=== PATIENT | female | born 1970 | race Caucasian/White ===

== ENCOUNTER 2016-12-30 10:05 | Emergency (ER) | payer OTHER ==
[~2016-12-30] VITALS: Ht 167.6 cm; Wt 75.0 kg
[~2016-12-30 10:05] MED LIST: ALBU8I INH; ATEN-100 PO; BENZ100 PO; CIPR500T4 PO; PRED20 PO
[2016-12-30 10:22] VITALS: BP 139/85; PULSE 80; RESP 20; TEMP 98.5; O2SAT 100
[2016-12-30] MEDS ORDERED: ATEN25TA PO (10:25)
--- NOTE | 2016-12-30 11:09 | PD ---
HPI Chief Complaint: Dizziness Time Seen by Provider: 10:50 Travel History International Travel<30 days: No Contact w/Intl Traveler<30days: No Traveled to known affect area: No History of Present Illness HPI Patient is a 46-year-old female presenting to the emergency department medical complaints. Patient states that she has been fatigued for weeks, she reports weakness in her arms and legs, she states that she has been dizzy with mood swings, inability to concentrate, her thoughts are racing she thinks that she has a cortisol problem due to being on several Medrol dose packs for bronchitis last year. She was treated for hypothyroidism and placed on Synthroid per her director ambulatory, she states this exacerbated her symptoms and she's been off of it for one week and doesn't feel any better. Only other medical histories of mitral valve prolapse, she is followed by Dr. Quintanilla her project specialist. She recently had a negative cardiac workup ordered. She denies any chest pain, abdominal pain, shortness of breath, nausea, vomiting. She does report that she feels anxious but that's related to her illness, she denies any recent or new stressors. PFSH Past Medical History Anxiety: Yes Cardiovascular Problems: Yes (MITRAL VALVE PROLAPSE) Tetanus Vaccination: > 5 Years ?: Not : 4 Para: 2 Past Surgical History Section: Yes Tonsillectomy: Yes Social History Alcohol Use: No Tobacco Use: No Substance Use: No Allergies-Medications (Allergen,Severity, Reaction): Coded Allergies: No Known Allergies (Verified , 12/30/16) Reported Meds & Prescriptions Reported Meds & Active Scripts Active Reported Atenolol 25 Mg Tab 12.5 Mg PO DAILY Review of Systems Except as stated in HPI: all other systems reviewed are Neg General / Constitutional: Positive: Other (fatigue) Eyes: No: Visual changes HENT: No: Headaches Cardiovascular: No: Chest Pain or Discomfort Respiratory: No: Shortness of Breath Gastrointestinal: No: Nausea, Abdominal Pain Genitourinary: No: Dysuria Musculoskeletal: Positive: Weakness Neurologic: Positive: Dizziness, Other (memory loss), No: Syncope, Focal Abnormalities Psychiatric: Positive: Anxiety Physical Exam Narrative GENERAL: Overweight, well-developed, alert female. Appears anxious, in no acute distress. SKIN: Focused skin assessment warm/dry. HEAD: Atraumatic. Normocephalic. EYES: Pupils equal and round. No scleral icterus. No injection or drainage. ENT: No nasal bleeding or discharge. Mucous membranes pink and moist. NECK: Trachea midline. No JVD. CARDIOVASCULAR: Regular rate and rhythm. No murmur appreciated. RESPIRATORY: No accessory muscle use. Clear to auscultation. Breath sounds equal bilaterally. GASTROINTESTINAL: Abdomen soft, non-tender, nondistended. Hepatic and splenic margins not palpable. MUSCULOSKELETAL: No obvious deformities. No clubbing. No cyanosis. No edema. NEUROLOGICAL: Awake and alert. No obvious cranial nerve deficits. Motor grossly within normal limits. Normal speech. PSYCHIATRIC: Appropriate mood and affect; insight and judgment normal. Data Data Last Documented VS Vital Signs Date Time Temp Pulse Resp B/P Pulse Ox O2 Delivery O2 Flow Rate FiO2 12/30/16 11:14 99 Room Air 12/30/16 10:22 98.5 80 20 139/85 Orders Complete Blood Count With Diff (12/30/16 11:01) Comprehensive Metabolic Panel (12/30/16 11:01) Urinalysis - C+S If Indicated (12/30/16 11:01) Ct Brain W/O Iv Contrast(Rout) (12/30/16 11:01) Ecg Monitoring (12/30/16 11:01) Iv Access Insert/Monitor (12/30/16 11:01) Oximetry (12/30/16 11:01) Sodium Chloride 0.9% Flush (Ns Flush) (12/30/16 11:15) Thyroid Stimulating Hormone (12/30/16 11:01) Free Thyroxine (T4) (12/30/16 11:01) Labs Laboratory Tests Test 12/30/16 11:09 White Blood Count 6.6 TH/MM3 Red Blood Count 4.47 MIL/MM3 Hemoglobin 13.5 GM/DL Hematocrit 39.1 % Mean Corpuscular Volume 87.7 FL Mean Corpuscular Hemoglobin 30.3 PG Mean Corpuscular Hemoglobin 34.5 % Concent Red Cell Distribution Width 13.6 % Platelet Count 238 TH/MM3 Mean Platelet Volume 8.3 FL Neutrophils (%) (Auto) 61.2 % Lymphocytes (%) (Auto) 29.4 % Monocytes (%) (Auto) 6.4 % Eosinophils (%) (Auto) 2.2 % Basophils (%) (Auto) 0.8 % Neutrophils # (Auto) 4.1 TH/MM3 Lymphocytes # (Auto) 2.0 TH/MM3 Monocytes # (Auto) 0.4 TH/MM3 Eosinophils # (Auto) 0.1 TH/MM3 Basophils # (Auto) 0.1 TH/MM3 CBC Comment DIFF FINAL Differential Comment Urine Color LIGHT-YELLOW Urine Turbidity CLEAR Urine pH 7.0 Urine Specific Finley 1.004 Urine Protein NEG mg/dL Urine Glucose (UA) NEG mg/dL Urine Ketones NEG mg/dL Urine Occult Blood NEG Urine Nitrite NEG Urine Bilirubin NEG Urine Urobilinogen LESS THAN 2.0 MG/DL Urine Leukocyte Esterase NEG Urine RBC LESS THAN 1 /hpf Urine Squamous Epithelial 1 /hpf Cells Microscopic Urinalysis Comment CULT NOT INDICATED Sodium Level 140 MEQ/L Potassium Level 4.2 MEQ/L Chloride Level 105 MEQ/L Carbon Dioxide Level 26.1 MEQ/L Anion Gap 9 MEQ/L Blood Urea Nitrogen 14 MG/DL Creatinine 0.78 MG/DL Estimat Glomerular Filtration 80 ML/MIN Rate Random Glucose 90 MG/DL Calcium Level 9.4 MG/DL Total Bilirubin 0.3 MG/DL Aspartate Amino Transf 17 U/L (AST/SGOT) Alanine Aminotransferase 23 U/L (ALT/SGPT) Alkaline Phosphatase 42 U/L Total Protein 7.2 GM/DL Albumin 3.8 GM/DL Free Thyroxine 0.95 NG/DL Thyroid Stimulating Hormone 3.210 uIU/ML [address] [place] [address] Medical Decision Making Medical Screen Exam Complete: Yes Emergency Medical Condition: Yes Medical Record Reviewed: Yes Interpretation(s) Vital Signs Date Time Temp Pulse Resp B/P Pulse Ox O2 Delivery O2 Flow Rate FiO2 12/30/16 10:22 98.5 80 20 139/85 100 Laboratory Tests Test 12/30/16 11:09 White Blood Count 6.6 TH/MM3 Red Blood Count 4.47 MIL/MM3 Hemoglobin 13.5 GM/DL Hematocrit 39.1 % Mean Corpuscular Volume 87.7 FL Mean Corpuscular Hemoglobin 30.3 PG Mean Corpuscular Hemoglobin 34.5 % Concent Red Cell Distribution Width 13.6 % Platelet Count 238 TH/MM3 Mean Platelet Volume 8.3 FL Neutrophils (%) (Auto) 61.2 % Lymphocytes (%) (Auto) 29.4 % Monocytes (%) (Auto) 6.4 % Eosinophils (%) (Auto) 2.2 % Basophils (%) (Auto) 0.8 % Neutrophils # (Auto) 4.1 TH/MM3 Lymphocytes # (Auto) 2.0 TH/MM3 Monocytes # (Auto) 0.4 TH/MM3 Eosinophils # (Auto) 0.1 TH/MM3 Basophils # (Auto) 0.1 TH/MM3 CBC Comment DIFF FINAL Differential Comment Urine Color LIGHT-YELLOW Urine Turbidity CLEAR Urine pH 7.0 Urine Specific Finley 1.004 Urine Protein NEG mg/dL Urine Glucose (UA) NEG mg/dL Urine Ketones NEG mg/dL Urine Occult Blood NEG Urine Nitrite NEG Urine Bilirubin NEG Urine Urobilinogen LESS THAN 2.0 MG/DL Urine Leukocyte Esterase NEG Urine RBC LESS THAN 1 /hpf Urine Squamous Epithelial 1 /hpf Cells Microscopic Urinalysis Comment CULT NOT INDICATED Sodium Level 140 MEQ/L Potassium Level 4.2 MEQ/L Chloride Level 105 MEQ/L Carbon Dioxide Level 26.1 MEQ/L Anion Gap 9 MEQ/L Blood Urea Nitrogen 14 MG/DL Creatinine 0.78 MG/DL Estimat Glomerular Filtration 80 ML/MIN Rate Random Glucose 90 MG/DL Calcium Level 9.4 MG/DL Total Bilirubin 0.3 MG/DL Aspartate Amino Transf 17 U/L (AST/SGOT) Alanine Aminotransferase 23 U/L (ALT/SGPT) Alkaline Phosphatase 42 U/L Total Protein 7.2 GM/DL Albumin 3.8 GM/DL Free Thyroxine 0.95 NG/DL Thyroid Stimulating Hormone 3.210 uIU/ML 3rd Gen Differential Diagnosis Vertigo versus anxiety versus thyroid issue versus electrolyte abnormality versus UTI versus other Narrative Course Patient is a 46-year-old female presenting to the emergency department with multiple vague medical complaints. Her vital signs are stable, there are no neurological deficits noted on exam. Labs and imaging ordered and pending. Patient is requesting CAT scan because she is concerned that there is something wrong with her brain. CT scan is negative for acute abnormality. CBC, chemistry, TSH and free T4 as well as urinalysis are unremarkable. Patient was reassured at this time that there are no acute findings. She was encouraged to follow up with her primary doctor and director ambulatory for further outpatient testing if needed. Furthermore she was encouraged to return to emergency department for any new or worsening symptoms. Patient was also seen and evaluated by my attending physician. Patient verbalized understanding of discharge instructions. Patient is stable for discharge. Diagnosis Primary Impression: Dizziness Referrals: Ear / Nose / Throat Specialist [employer] Primary Care Physician Patient Instructions: Dizziness (ED), General Instructions Additional Instructions: Follow-up with your providers as scheduled Return to emergency department for any new or worsening symptoms Med/Other Pt SpecificInfo: No Change to Meds Disposition: 01 DISCHARGE HOME Condition: Stable Jolynn Cardoza Dec 30, 2016 11:09
[2016-12-30 11:14] VITALS: O2SAT 99
[2016-12-30] MEDS ORDERED: SODIUM CHLORIDE 0.9% FLUSH 10 ML FLUSH IVF PRN (11:15)
[2016-12-30 11:29] LABS: AUTOMATED NEUTROPHIL # 4.1 TH/MM3 (1.8-7.7); BASOPHIL # 0.1 TH/MM3 (0-0.2); BASOPHIL % 0.8 % (0.0-2.0); EOSINOPHIL # 0.1 TH/MM3 (0-0.4); EOSINOPHIL % 2.2 % (0.0-4.0); HEMATOCRIT 39.1 % (35.0-46.0); HEMO FLAGS DIFF FINAL; LYMPH % 29.4 % (9.0-44.0); MEAN CELL VOLUME 87.7 FL (80.0-100.0); MEAN CORPUSCULAR HEMOGLOBIN 30.3 PG (27.0-34.0); MEAN CORPUSCULAR HGB CONC 34.5 % (32.0-36.0); MONO % 6.4 % (0.0-8.0); NEUT % 61.2 % (16.0-70.0); PLATELET COUNT 238 TH/MM3 (150-450); RED BLOOD COUNT 4.47 MIL/MM3 (4.00-5.30); RED CELL DISTRIBUTION WIDTH 13.6 % (11.6-17.2); WHITE BLOOD COUNT 6.6 TH/MM3 (4.0-11.0)
[2016-12-30 11:32] LABS: BLOOD, URINE NEG (NEG); GLUCOSE,URINE NEG (NEG); KETONE, URINE NEG (NEG); NITRITE,URINE NEG (NEG); SQUAMOUS EPITHELIAL CELL URINE 1 /hpf (0-5); URINE COLOR LIGHT-YELLOW (YELLW/STRAW)
[2016-12-30 11:46] LABS: COMMENT (UR) CULT NOT INDICATED; CULTURE IF INDICATED CULT NOT INDICATED
[2016-12-30 11:49] LABS: ANION GAP 9 MEQ/L (5-15); BICARBONATE 26.1 MEQ/L (21.0-32.0); BLOOD UREA NITROGEN 14 MG/DL (7-18); CHLORIDE 105 MEQ/L (98-107); GLOMERULAR FILTRATION RATE 80 ML/MIN (>89); POTASSIUM 4.2 MEQ/L (3.5-5.1); SODIUM (NA) 140 MEQ/L (136-145)
--- NOTE | 2016-12-30 11:49 | RADRPT ---
EXAM DATE/TIME: 12/30/2016 11:43 [facility] COMPARISON: No previous studies available for comparison. INDICATIONS : Dizziness and memory loss RADIATION DOSE: 38.84 CTDIvol (mGy) MEDICAL HISTORY : Cardiovascular disease. SURGICAL HISTORY : Tonsillectomy. ENCOUNTER: Initial ACUITY: 1 day PAIN SCALE: 0/10 LOCATION: cranial TECHNIQUE: Multiple contiguous axial images were obtained of the head. Using automated exposure control and adj ustment of the mA and/or kV according to patient size, radiation dose was kept as low as reasonably a chievable to obtain optimal diagnostic quality images. FINDINGS: CEREBRUM: The ventricles are normal for age. No evidence of midline shift, mass lesion, hemorrhage or acute in farction. No extra-axial fluid collections are seen. POSTERIOR FOSSA: The cerebellum and brainstem are intact. The 4th ventricle is midline. The cerebellopontine angle i s unremarkable. EXTRACRANIAL: The visualized portion of the orbits is intact. SKULL: The calvaria is intact. No evidence of skull fracture. CONCLUSION: Unremarkable exam. Dayday Fish MD on December 30, 2016 at 11:46 Board Certified Radiologist. This report was verified electronically.
[2016-12-30 11:59] LABS: ALKALINE PHOSPHATASE 42 U/L (45-117); ALT (GPT) 23 U/L (10-53); AST (GOT) 17 U/L (15-37); FREE T4 0.95 NG/DL (0.76-1.46); TOTAL BILIRUBIN ADULT 0.3 MG/DL (0.2-1.0)
--- NOTE | 2016-12-30 13:47 | EKG ---
Date Performed: 12/30/2016 Time Performed: 10:21:10 PTAGE: 46 years EKG: Sinus rhythm RIGHT BUNDLE BRANCH BLOCK ABNORMAL ECG COMPARED TO PRIOR ELECTROCARDIOGRAM, RIGHT bundle branch bloc k is present. PREVIOUS TRACING : 04/20/2008 23.52 DOCTOR: Tristin Rivera Interpretating Date/Time 12/30/2016 13:45:24
== END 2016-12-30 12:50 | disposition home or self-care (01) ==
LOC: NEPD 10:05
DX: R42 Dizziness and giddiness (principal); I34.1 Nonrheumatic mitral (valve) prolapse; F41.9 Anxiety disorder, unspecified; E03.9 Hypothyroidism, unspecified
CPT/HCPCS: 70450; 80053; 81001; 84439; 84443; 85025; 93005

== ENCOUNTER 2017-09-29 00:03 | Emergency (ER) | payer OTHER ==
[~2017-09-29] VITALS: Ht 170.2 cm; Wt 75.0 kg
[~2017-09-29 00:03] MED LIST changes: -ALBU8I INH; -ATEN-100 PO; +ATEN25TA PO; -BENZ100 PO; -CIPR500T4 PO; -PRED20 PO
[2017-09-29 00:12] VITALS: BP 127/76; PULSE 72; RESP 18; TEMP 97.9; O2SAT 96
--- NOTE | 2017-09-29 00:52 | PD ---
HPI . Dizziness Chief Complaint: Abdominal Pain Time Seen by Provider: 00:28 Travel History International Travel<30 days: No Contact w/Intl Traveler<30days: No Traveled to known affect area: No History of Present Illness HPI Patient presents to us by [facility] with the chief complaint of dizziness. Onset was today. She states that she developed abdominal pain associated with vomiting and diarrhea yesterday. She developed the dizziness today. She is also describing a dull headache. She states that her dizziness is a spinning sensation and is exacerbated by movement. Palpitations. She denies fever. She denies urinary tract symptoms. She states that she has been drinking a lot of fluids and has been able to keep them down. Symptoms are mild. PFSH Past Medical History Anxiety: Yes Cardiovascular Problems: Yes (mvp) Tetanus Vaccination: Unknown Influenza Vaccination: Yes ?: Not LMP: last week : 4 Para: 2 Past Surgical History Cardiac Surgery: Yes (MITRAL VALVE PROLAPSE) Section: Yes Tonsillectomy: Yes Social History Alcohol Use: No Tobacco Use: No Substance Use: No Allergies-Medications (Allergen,Severity, Reaction): Coded Allergies: No Known Allergies (Verified Adverse Reaction, Unknown, 09/29/17) Reported Meds & Prescriptions Reported Meds & Active Scripts Active Reported Atenolol 25 Mg Tab 12.5 Mg PO DAILY Review of Systems Except as stated in HPI: all other systems reviewed are Neg General / Constitutional: No: Fever, Chills Eyes: No: Diploplia, Blurred Vision HENT: Positive: Headaches, Vertigo Cardiovascular: Positive: Palpitations, No: Chest Pain or Discomfort Respiratory: No: Cough, Shortness of Breath Gastrointestinal: Positive: Nausea, Vomiting, Diarrhea, Abdominal Pain Genitourinary: No: Urgency, Frequency, Dysuria, Decreased Urinary Output Physical Exam Narrative GENERAL: Patient is awake and alert and in no acute distress. SKIN: warm/dry. Normal color and turgor. HEAD: Normocephalic. Atraumatic. EYES: Pupils equal and round. No scleral icterus. No injection or drainage. ENT: No nasal bleeding or discharge. Mucous membranes pink and moist. NECK: Trachea midline. Full range of motion without pain.. CARDIOVASCULAR: Regular rate and rhythm. Heart sounds normal. RESPIRATORY: No accessory muscle use. Clear to auscultation. Breath sounds equal bilaterally. GASTROINTESTINAL: Abdomen soft. Nontender. Bowel sounds present. Nondistended. MUSCULOSKELETAL: No obvious deformities. NEUROLOGICAL: Awake and alert. No obvious cranial nerve deficits. Motor grossly within normal limits. Normal speech. PSYCHIATRIC: Appropriate mood and affect; insight and judgment normal. Data Data Last Documented VS Vital Signs Date Time Temp Pulse Resp B/P (MAP) Pulse Ox O2 Delivery O2 Flow Rate FiO2 09/29/17 00:25 16 09/29/17 00:12 97.9 72 127/76 (93) 96 Orders Orders Diphenhydramine Inj (Benadryl Inj) (09/29/17 01:00) Prochlorperazine Inj (Compazine Inj) (09/29/17 01:00) Sodium Chlor 0.9% 1000 Ml Inj (Ns 1000 M (09/29/17 01:00) Basic Metabolic Panel (Bmp) (09/29/17 01:18) Labs Laboratory Tests Test 09/29/17 01:55 Blood Urea Nitrogen 14 MG/DL Creatinine 0.66 MG/DL Random Glucose 107 MG/DL Calcium Level 8.1 MG/DL Sodium Level 143 MEQ/L Potassium Level 3.9 MEQ/L Chloride Level 113 MEQ/L Carbon Dioxide Level 24.0 MEQ/L Anion Gap 6 MEQ/L Estimat Glomerular Filtration Rate 96 ML/MIN MDM Medical Decision Making Medical Screen Exam Complete: Yes Emergency Medical Condition: Yes Differential Diagnosis Differential diagnosis of dizziness includes but is not limited to vertigo, dehydration, acute blood loss, sepsis, ACS Narrative Course This patient presents with the chief complaint of dizziness which she describes as vertigo. However, she has had nausea, vomiting and diarrhea for the last 24- 48 hours. She could also be dehydrated. She will be treated with IV fluids and IV Compazine and Benadryl. She will then be reassessed. BMP Diagram 09/29/17 01:55 Calcium Level 8.1 L Dizziness is improved with IV fluids. She refused Compazine and Benadryl. The history, exam, diagnostic testing, and current condition do not suggest any significant pathology to warrant further testing, continued ED treatment, admission, or surgical evaluation at this point. No EMC was found. The patient 's condition is stable and appropriate for discharge. Diagnosis Primary Impression: Dizziness Patient Instructions: Dizziness (ED), General Instructions Disposition: DISCHARGE HOME Condition: Stable Joanie Dinero MD Sep 29, 2017 00:52
[2017-09-29] MEDS ORDERED: PROCHLORPERAZINE INJ 10 MG/2 ML VIAL IV PUSH ONE (01:00)
[2017-09-29] MEDS ORDERED: SODIUM CHLOR 0.9% 1000 ML INJ 1,000 ML IV ONE (01:00)
[2017-09-29] MEDS ORDERED: diphenhydrAMINE HCL 50 MG/ML VIAL IV PUSH ONE (01:00)
[2017-09-29 02:25] LABS: CALCIUM 8.1 MG/DL (8.5-10.1); CREATININE 0.66 MG/DL (0.50-1.00)
== END 2017-09-29 02:58 | disposition home or self-care (01) ==
LOC: NEPC 00:03
DX: R42 Dizziness and giddiness (principal); F41.9 Anxiety disorder, unspecified; I34.1 Nonrheumatic mitral (valve) prolapse
CPT/HCPCS: 80048; 96360; 99284; J7030

== ENCOUNTER 2018-01-28 21:53 | Emergency (ER) | payer OTHER ==
[2018-01-28 21:57] VITALS: BP 134/60; PULSE 67; RESP 18; TEMP 97.9; O2SAT 99
== END 2018-01-28 22:44 | disposition left against medical advice (07) ==
LOC: PHED 21:53
DX: Z53.21 Procedure and treatment not carried out due to patient leaving prior to being seen by health care provider (principal); R10.9 Unspecified abdominal pain
CPT/HCPCS: 99281